=== PATIENT | male | born 1970 | race Caucasian/White ===

== ENCOUNTER 2019-11-11 23:03 | Inpatient (IN) | payer OTHER, SELFPAY ==
[2019-11-11 23:54] LABS: Absolute Lymphocytes (CBC) 2.7 K/uL (0.7-4.9); Basophils % 0.6 % (0-1.3); Hematocrit 41.7 % (39.6-49.0); Lymphocytes % 15.4 % (15.3-44.8); MPV 9.3 fL (7.6-11.3); Protime INR 1.06; RBC Red Blood Cell Count 4.39 M/uL (4.33-5.43)
[2019-11-12 00:08] LABS: Bilirubin Direct 0.1 mg/dL (0-0.2); Bilirubin Total 0.4 mg/dL (0.2-1.0); Magnesium 2.4 mg/dL (1.8-2.4); Potassium 3.2 mmol/L (3.5-5.1); Protein, Total 8.2 g/dL (6.4-8.2); Troponin (Emerg Dept Use Only) 0.02 ng/mL (0.0-0.045)
[2019-11-12 03:20] LABS: Barbiturates NEGATIVE (NEGATIVE); Benzodiazepines NEGATIVE (NEGATIVE); Cocaine NEGATIVE (NEGATIVE); METHAMPHETAM POSITIVE (NEGATIVE); Methadone NEGATIVE (NEGATIVE); Opiates NEGATIVE (NEGATIVE); Phencyclidine NEGATIVE (NEGATIVE); THC Cannibis NEGATIVE (NEGATIVE)
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
[2019-11-12 03:31] LABS: Urine Blood NEGATIVE (NEG); Urine Glucose NEGATIVE (NEG); Urine Protein 1+ (NEG); Urine Specific Gravity >1.030 (1.005-1.030); Urine pH 5.5 (5.0-7.0)
[2019-11-12] MEDS ORDERED: ALBUTEROL INHALER 60 PUFF/8 GM IH PRN (03:31)
[2019-11-12] MEDS ORDERED: ACETAMINOPHEN 500 MG TAB PO PRN (03:31)
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
--- NOTE | 2019-11-12 03:37 | ER ---
Nurse's Notes [facility] Name: Nestor Blevins Age: 49 yrs Sex: Male : 1970 Arrival Date: 11/11/2019 Time: 23:04 Bed 18 Private MD: Diagnosis: Shortness of breath;COVID positive Presentation: 11/10 23:11 Ebola Screen: No symptoms or risks identified at this time. Initial Sepsis Screen: Does lp1 the patient meet any 2 criteria? No. Patient's initial sepsis screen is negative. Does the patient have a suspected source of infection? No. Patient's initial sepsis screen is negative. Risk Assessment: Do you want to hurt yourself or someone else? Patient reports no desire to harm self or others. Onset of symptoms was November 11, 2019. 23:11 Method Of Arrival: EMS: [facility] 1 23:11 Acuity: RG 3 lp1 23:35 Chief complaint: Patient states: CP and SOB for 2-3 days. States he was covid positive ll1 in [place] 14 days ago. No fever, slight cough. Coronavirus screen: Surgical mask placed on patient. Patient moved to private room, placed in contact and droplet isolation with eye protection until further assessment. Patient reports a cough. Patient denies shortness of breath or difficulty breathing. Patient denies measured and/or subjective temperature greater than 100.4F prior to today's visit. Patient denies travel on a cruise ship or to a country the [facility] currently lists as an affected area. Patient denies contact with known and/or suspected case of COVID-19. Onset of symptoms was November 08, 2019. 23:35 Acuity: RG 3 ll1 Historical: - Allergies: 23:11 PENICILLINS; lp1 23:11 Codeine; lp1 - Home Meds: 23:11 Xarelto oral oral [Active]; lp1 - PMHx: 23:11 None; lp1 - PSHx: 23:11 Hernia repair; Tonsillectomy; lp1 - Immunization history:: Adult Immunizations up to date. - Social history:: Smoking status: Patient reports the use of cigarette tobacco products, smokes one-half pack cigarettes per day, Smoking status: Patient reports the use of cigarette tobacco products, smokes one-half pack cigarettes per day. Screenin:12 Abuse screen: Denies threats or abuse. Denies injuries from another. Nutritional lp1 screening: No deficits noted. Tuberculosis screening: No symptoms or risk factors identified. Fall Risk None identified. Assessment: 23:34 General: Appears uncomfortable, Behavior is cooperative, anxious. Pain: Complains of ll1 pain in chest Quality of pain is described as aching, Pain began 2-3 days ago. Neuro: No deficits noted. Cardiovascular: Heart tones S1 S2 Capillary refill < 3 seconds Clubbing of nail beds is absent JVD is absent Patient's skin is warm and dry. Pulses are all present. Chest pain quality is squeezing. 11/11 01:00 Reassessment: Patient appears in no apparent distress at this time. Patient and/or vc family updated on plan of care and expected duration. Pain level reassessed. Patient is alert, oriented x 3, equal unlabored respirations, skin warm/dry/pink. 02:00 Reassessment: Patient appears in no apparent distress at this time. Patient and/or vc family updated on plan of care and expected duration. Pain level reassessed. Patient is alert, oriented x 3, equal unlabored respirations, skin warm/dry/pink. 02:10 Reassessment: Dr. Beebe at bedside, informed of patient admission to [place] [id number] previously, COVID-19 positive; Droplet precautions in place. 03:41 Reassessment: Patient appears in no apparent distress at this time. Patient is alert, lp1 oriented x 3, equal unlabored respirations, skin warm/dry/pink. Patient resting comfortably; denies any needs. Vital Signs: 11/10 23:11 BP 136 / 85; Pulse 101; Resp 18; Temp 98.9(O); Pulse Ox 100% on R/A; Weight 75.75 kg lp1 (R); Height 5 ft. 9 in. (175.26 cm); Pain 0/10; 23:50 BP 135 / 83; Pulse 90; Resp 18; Temp 98.9; Pulse Ox 99% ; Pain 0/10; ll1 11/11 02:00 BP 133 / 81; Pulse 93; Resp 15; Pulse Ox 98% on R/A; vc 02:26 BP 140 / 85; Pulse 83; Resp 18; Pulse Ox 97% on R/A; vc 03:30 BP 134 / 78; Pulse 77; Resp 18; Pulse Ox 99% on R/A; lp1 11/10 23:11 Body Mass Index 24.66 (75.75 kg, 175.26 cm) lp1 ED Course: 11/10 23:04 Patient arrived in ED. ll1 23:07 Carlos Crandall PA is PHCP. leandro 23:07 Cornel Wallis DO is Attending Physician. [facility] 23:09 Oralia Gomez, MICHELE is Primary Nurse. ll1 23:11 Arm band placed on. lp1 23:12 Triage completed. lp1 23:34 Inserted saline lock: 18 gauge in right antecubital area, using aseptic technique. ll1 Blood collected. 23:38 Patient placed in an exam room, on a stretcher, on equipment monitor phototypesetting, on pulse oximetry. ll1 23:38 Patient has correct armband on for positive identification. Bed in low position. Call ll1 light in reach. Side rails up X 1. panel monitor on. Pulse ox on. NIBP on. 11/11 01:07 Chest Single View XRAY In Process Unspecified. EDMS 02:11 Report received from MICHELE Mary. lp1 03:35 Kelvin Beebe MD is Hospitalizing Provider. ms3 03:41 No provider procedures requiring assistance completed. lp1 03:46 Patient admitted, IV remains in place. lp1 Administered Medications: No medications were administered Outcome: 03:36 Decision to Hospitalize by Provider. ms3 03:44 Condition: stable lp1 03:44 Instructed on the need for admit. 05:09 Admitted to Tele room 418, with chart, Report called to MICHELE Cooper lp1 05:10 Patient left the ED. lp1 Signatures: Dispatcher [employer] EDMS Carlos Crandall PA PA jmm Pena, Laura, RN RN lp1 Tyra Porter RN RN vc Lewis, Lynsay, RN RN ll1 Cornel Wallis DO DO ms3 Corrections: (The following items were deleted from the chart) 03:44 02:10 Reassessment: Dr. Beebe at bedside, informed of patient admission to [facility] lp1 previously, COVID-19 positive lp1
[2019-11-12] MEDS ORDERED: POTASSIUM CL SA 10 MEQ TAB PO ONE (03:53)
[2019-11-12] MEDS ORDERED: NA CHLORIDE 0.9% 1,000 ML IV SCH (04:00)
[2019-11-12] MEDS: AZITHROMYCIN 250 MG TAB PO SCH (05:21)
[2019-11-12] MEDS: APIXABAN 5 MG TABLET PO SCH ×2 (05:21→20:47)
[2019-11-12 06:00] VITALS: BMI 24.6
[2019-11-12] MEDS: ZINC SULFATE 220 MG CAP PO SCH (07:52)
[2019-11-12] MEDS: HYDROCODONE/APAP 10/325 TAB PO PRN ×2 (07:52→20:47)
--- NOTE | 2019-11-12 08:52 | EKG ---
Test Date: 2019-11-11 Test Time: 23:30:14 Gas Dispenser: AB MEASUREMENT RESULTS: Intervals: Rate: 94 MS: 140 QRSD: 88 QT: 382 QTc: 477 Irene: P: 70 MS: 140 QRS: 100 T: 83 INTERPRETIVE STATEMENTS: Normal sinus rhythm Rightward axis Borderline ECG No previous ECG available for comparison Electronically Signed On 11-12-19 08:52:09 CDT by Riki Reis
[2019-11-12] MEDS ORDERED: predniSONE 20 MG TAB PO SCH (09:00)
--- NOTE | 2019-11-12 09:07 | RAD REPORT ---
EXAM DESCRIPTION: Bhumi Single View11/12/2019 1:07 am CLINICAL HISTORY: Chest pain COMPARISON: none FINDINGS: The lungs appear clear of acute infiltrate. The heart is normal size IMPRESSION: No acute abnormalities displayed
--- NOTE | 2019-11-12 15:13 | P.PN ---
Subjective Date of Service: 11/12/19 Primary Care Provider: None Subjective: Other (Patient without any significant chest pain or shortness of breath. Patient admits that he was seen at [facility] within the past 2 weeks. He was hospitalized at that time and found to have a pulmonary embolism and also positive for COVID. He was discharged with anti coagulation therapy- Xarelto. He was also discharged to a hotel which took COVID patient's but only for 3 days. He stayed there then went to [place] with his niece. Since then he has been homeless.) Physical Examination - Vital Signs Temperature: 96.4 F Blood Pressure: 123/81 Pulse: 77 Respirations: 18 Pulse Ox (%): 97 - Physical Exam General: Alert, In no apparent distress, Cooperative HEENT: Atraumatic Neck: Supple Respiratory: Other (Patient breathing appropriately) Cardiovascular: Normal pulses, Regular rate/rhythm Neurological: Normal speech, Normal strength at 5/5 x4 extr, Normal tone, Normal affect - Studies Laboratory Data (last 24 hrs) 11/11/19 23:15: PT 12.5, INR 1.06 11/11/19 23:15: WBC 17.3 H, Hgb 14.1, Hct 41.7, Plt Count 291 11/11/19 23:15: Sodium 137, Potassium 3.2 L, BUN 16, Creatinine 1.74 H, Glucose 88, Magnesium 2.4, Total Bilirubin 0.4, AST 24, ALT 34, Alkaline Phosphatase 101 Microbiology Data (last 24 hrs): 11/12/19 03:15 Nasopharnyx Coronavirus COVID-19 PCR - Final Medications List Reviewed: Yes Assessment & Plan Discharge Plan: Home Plan to discharge in: 24 Hours Physician Review Additional Text: Impression: Pulmonary embolism on chronic anti coagulation therapy Acute renal injury likely dehydration Positive for amphetamines Homeless Plan: Pulmonary embolism on chronic anti coagulation therapy: Will have social services technician help to arrange for the patient to get Eliquis for free. Will send a prescription to the pharmacy. He should be able to get this without difficulty. Patient is originally from [place]. Patient reports that he has insurance. He may have [facility] card which will provide him to get medication at the indigent center near [facility]. Patient is asymptomatic at this time. Patient can be discharged but patient is homeless. Patient desires to go to [place] where his family is from. Case discussed at length with social services technician. Will make sure patient is able to get anti coagulation therapy. May need to make arrangements for the patient to be sent to [facility] facility that takes positive COVID patients. Other option would be for family member to come from [place] to pick him up. This was discussed in detail with him. He will try to reach his family. Social work to continue to help with discharge planning. Anticipate discharge tomorrow. I will turn the service over to the hospitalist team tomorrow. I will go the plan of care with him. Acute renal injury likely dehydration: This appears improved. Patient tolerating diet. Discontinue IV fluids. Positive for amphetamines: Patient is positive for amphetamines. Cessation will need to be addressed Homeless: Social work to help in this process. Time Spent Managing Pts Care (In Minutes): 55
[2019-11-13] MEDS: HYDROCODONE/APAP 10/325 TAB PO PRN ×3 (07:46→23:24)
[2019-11-13] MEDS: ZINC SULFATE 220 MG CAP PO SCH (07:47)
[2019-11-13] MEDS: APIXABAN 5 MG TABLET PO SCH ×2 (07:47→19:22)
[2019-11-13] MEDS: AZITHROMYCIN 250 MG TAB PO SCH (07:47)
--- NOTE | 2019-11-13 14:26 | P.PN ---
Subjective Date of Service: 11/13/19 Primary Care Provider: None Chief Complaint: Fever Subjective: No new changes Physical Examination - Vital Signs Temperature: 96.0 F Blood Pressure: 137/82 Pulse: 72 Respirations: 16 Pulse Ox (%): 99 - Physical Exam General: Alert, In no apparent distress HEENT: Atraumatic, Normocephalic Neck: Supple Respiratory: Normal air movement Cardiovascular: Regular rate/rhythm Gastrointestinal: Soft and benign Rectal: Deferred - Studies Laboratory Last Values WBC 17.3 K/uL (4.3-10.9) H 11/11/19 23:15 RBC 4.39 M/uL (4.33-5.43) 11/11/19 23:15 Hgb 14.1 g/dL (13.6-17.9) 11/11/19 23:15 Hct 41.7 % (39.6-49.0) 11/11/19 23:15 MCV 94.9 fL (80-100) 11/11/19 23:15 MCH 32.2 pg (27.0-35.0) 11/11/19 23:15 MCHC 34.0 g/dL (32.0-36.0) 11/11/19 23:15 RDW 12.8 % (12.1-15.2) 11/11/19 23:15 Plt Count 291 K/uL (152-406) 11/11/19 23:15 MPV 9.3 fL (7.6-11.3) 11/11/19 23:15 Neutrophils % 77.2 % (41.7-73.7) H 11/11/19 23:15 Lymphocytes % 15.4 % (15.3-44.8) 11/11/19 23:15 Monocytes % 6.1 % (3.3-12.3) 11/11/19 23:15 Eosinophils % 0.7 % (0-4.4) 11/11/19 23:15 Basophils % 0.6 % (0-1.3) 11/11/19 23:15 Absolute Neutrophils 13.4 K/uL (1.8-8.0) H 11/11/19 23:15 Absolute Lymphocytes 2.7 K/uL (0.7-4.9) 11/11/19 23:15 Absolute Monocytes 1.1 K/uL (0.1-1.3) 11/11/19 23:15 Absolute Eosinophils 0.1 K/uL (0-0.5) 11/11/19 23:15 Absolute Basophils 0.1 K/uL (0-0.5) 11/11/19 23:15 PT 12.5 SECONDS (9.5-12.5) 11/11/19 23:15 INR 1.06 11/11/19 23:15 D-Dimer Cancelled 11/12/19 01:58 Sodium 137 mmol/L (136-145) 11/11/19 23:15 Potassium 3.2 mmol/L (3.5-5.1) L 11/11/19 23:15 Chloride 104 mmol/L (98-107) 11/11/19 23:15 Carbon Dioxide 21 mmol/L (21-32) 11/11/19 23:15 BUN 16 mg/dL (7-18) 11/11/19 23:15 Creatinine 1.74 mg/dL (0.55-1.3) H 11/11/19 23:15 Estimated GFR 42 mL/min (=/>90) L 11/11/19 23:15 Glucose 88 mg/dL (74-106) 11/11/19 23:15 Calcium 8.4 mg/dL (8.5-10.1) L 11/11/19 23:15 Magnesium 2.4 mg/dL (1.8-2.4) 11/11/19 23:15 Total Bilirubin 0.4 mg/dL (0.2-1.0) 11/11/19 23:15 Direct Bilirubin 0.1 mg/dL (0-0.2) 11/11/19 23:15 AST 24 U/L (15-37) 11/11/19 23:15 ALT 34 U/L (12-78) 11/11/19 23:15 Alkaline Phosphatase 101 U/L (45-117) 11/11/19 23:15 Creatine Kinase Cancelled 11/12/19 00:53 Rapid Troponin I 0.02 ng/mL (0.0-0.045) 11/11/19 23:15 NT-Pro-B Natriuret Pep 2213 pg/mL (<125) H 11/11/19 23:15 Serum Total Protein 8.2 g/dL (6.4-8.2) 11/11/19 23:15 Albumin 4.0 g/dL (3.4-5.0) 11/11/19 23:15 Globulin 4.2 g/dL (2.3-3.5) H 11/11/19 23:15 Albumin/Globulin Ratio 1.0 (1.1-1.8) L 11/11/19 23:15 Urine pH 5.5 (5.0-7.0) 11/12/19 02:23 Ur Specific [place] >1.030 (1.005-1.030) H 11/12/19 02:23 Glucose (UA)(Auto) Negative (NEG) 11/12/19 02:23 Urine Ketones Negative (NEG) 11/12/19 02:23 Urine Blood Negative (NEG) 11/12/19 02:23 Urine Nitrite Negative (NEG) 11/12/19 02:23 Ur Leukocyte Esterase Negative (NEG) 11/12/19 02:23 Urine Total Protein 1+ (NEG) H 11/12/19 02:23 Opiates Screen Negative (NEGATIVE) 11/12/19 02:16 Methadone Screen Negative (NEGATIVE) 11/12/19 02:16 Ur Barbiturates Screen Negative (NEGATIVE) 11/12/19 02:16 Ur Phencyclidine Scrn Negative (NEGATIVE) 11/12/19 02:16 Amphetamines Screen Positive (NEGATIVE) H 11/12/19 02:16 Benzodiazepines Screen Negative (NEGATIVE) 11/12/19 02:16 Cocaine Screen Negative (NEGATIVE) 11/12/19 02:16 Ur THC Screen Negative (NEGATIVE) 11/12/19 02:16 Plasma/Serum Alcohol < 10 mg/dL (<10) 11/11/19 23:15 Medications List Reviewed: Yes Assessment & Plan Physician Review Additional Text: Impression: Pulmonary embolism on chronic anti coagulation therapy Acute renal injury likely dehydration Positive for amphetamines Homeless Plan: Pulmonary embolism on chronic anti coagulation therapy: Will have social welfare administrator help to arrange for the patient to get Eliquis for free. Will send a prescription to the pharmacy. He should be able to get this without difficulty. Patient is originally from [place]. Patient reports that he has insurance. He may have [facility] card which will provide him to get medication at the indigent center near [facility]. Patient is asymptomatic at this time. Patient can be discharged but patient is homeless. Patient desires to go to [place] where his family is from. Case discussed at length with social welfare administrator. Will make sure patient is able to get anti coagulation therapy. May need to make arrangements for the patient to be sent to [facility] facility that takes positive COVID patients. Other option would be for family member to come from [place] to pick him up. This was discussed in detail with him. He will try to reach his family. Social work to continue to help with discharge planning. Acute renal injury likely dehydration: This appears improved. Patient tolerating diet. Discontinue IV fluids. Positive for amphetamines: Patient is positive for amphetamines. Cessation will need to be addressed Homeless: Social work to help in this process. 11/13/2019 Discuss with case management Awaiting disposition planning Monitor closely Continues same measures Possible Dc in a.m. Time Spent Managing Pts Care (In Minutes): 30
[2019-11-13] MEDS: NICOTINE 14 MG/PAT TD SCH (19:22)
[2019-11-13] MEDS ORDERED: TRAZODONE 50 MG TABLET PO ONE (20:17)
[2019-11-14] MEDS: HYDROCODONE/APAP 10/325 TAB PO PRN (05:30)
[2019-11-14] MEDS: APIXABAN 5 MG TABLET PO SCH (08:12)
[2019-11-14] MEDS: AZITHROMYCIN 250 MG TAB PO SCH (08:13)
[2019-11-14] MEDS: ZINC SULFATE 220 MG CAP PO SCH (08:13)
[2019-11-14] MEDS: NICOTINE 14 MG/PAT TD SCH (08:13)
--- NOTE | 2019-11-14 09:57 | P.PN ---
Subjective Date of Service: 11/14/19 Primary Care Provider: None Chief Complaint: Fever No new complaint today. Physical Examination - Vital Signs Temperature: 96.4 F Blood Pressure: 130/89 Pulse: 68 Respirations: 18 Pulse Ox (%): 97 - Physical Exam General: Alert, In no apparent distress HEENT: Mucous membr. moist/pink Neck: Supple Respiratory: Clear to auscultation bilaterally, Normal air movement Cardiovascular: No edema, Regular rate/rhythm, Normal S1 S2 - Studies Medications List Reviewed: Yes Assessment And Plan Physician Review Additional Text: Impression: Pulmonary embolism on chronic anti coagulation therapy Acute renal injury likely dehydration Positive for amphetamines Homeless Plan: Pulmonary embolism on chronic anti coagulation therapy: environmental services aide to help to arrange for the patient to get a supply of Eliquis. Patient reports that he has insurance. He may have [email or web address] card which will provide him to get medication at the indigent center near [facility]. Patient is asymptomatic and stable for discharge. He is homeless. I am told he was recently released from incarceration. Patient desires to go to [place] where his family is from. Case discussed at length with social work professor. Another option is to make arrangements for the patient to be sent to [facility] facility that takes positive COVID patients. Other option would be for family member to come from [place] to pick him up. Social work to continue to help with discharge planning. Acute renal injury likely dehydration: This appears improved. Patient tolerating diet. Positive for amphetamines: Patient is positive for amphetamines. Cessation advised Homeless: Social work to help in this process. .
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
[2019-11-14 12:40] VITALS: BP 156/86; TEMP 98.6; O2SAT 99
[2019-11-19] MEDS ORDERED: APIXABAN 5 MG TABLET PO SCH (09:00)
== END 2019-11-14 13:21 | disposition home or self-care (01) | DRG 177 ==
LOC: ER 23:03 → ERHOLD 11-12 03:42 → 4TH 11-12 04:51
PROVIDERS: ADMIT Hospitalist; ATTEND Family Medicine
PROC: 8E0ZXY6 Isolation (ICD-10-PCS; principal; 2019-11-12)
DX: U07.1 COVID-19 (principal); I26.99 Other pulmonary embolism without acute cor pulmonale; N17.9 Acute kidney failure, unspecified; F17.210 Nicotine dependence, cigarettes, uncomplicated; E86.0 Dehydration; Z59.0 Homelessness; Z88.5 Allergy status to narcotic agent; Z88.0 Allergy status to penicillin; Z79.01 Long term (current) use of anticoagulants
CPT/HCPCS: 36415; 71045; 80048; 80076; 80307; 80320; 81003; 82550; 83735; 83880; 84132; 84484; 85025; 85610; 93005; 94760; 99285; J7030; J7512; U0002